=== PATIENT | female | born 2000 | race American Indian/Alaskan Native ===

== ENCOUNTER 2019-01-29 13:40 | Emergency (ER) | payer MEDICAID ==
[2019-01-29 13:56] VITALS: BP 120/72
--- NOTE | 2019-01-29 14:18 | Emergency Department Report ---
ED Rash HPI - HPI Chief Complaint: Medical Clearance Stated Complaint: RINGWORM SPREAD Time Seen by Provider: 01/29/19 14:11 Duration: 2-3 weeks Location: Neck Suspected Cause: Unknown Rash Symptoms: Yes Itching, No Facial Swelling, No Tongue/Oral Swelling, No Breathing Difficulties, No Choking Sensation, No Wheezing/Dyspnea, No Peeling, No Blistering, No Fever, No Lightheaded, No Malaise, No Myalgias Severity: mild Other History: This is a 18-year-old female that presents to the ER with pruritic rash to posterior neck for 2-3 weeks. Patient states her son had similar rash which cleared in a few days. State has was small and now spreading from posterior neck to right shoulder. Denies changing soaps and detergents. 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 Denies cough, fever, chills, redness, swelling, or dyspnea. ED Review of Systems ROS: Stated complaint: RINGWORM SPREAD Other details as noted in HPI Constitutional: denies: chills, fever Respiratory: denies: cough, shortness of breath, wheezing Cardiovascular: denies: chest pain, palpitations Gastrointestinal: denies: abdominal pain, nausea, diarrhea Skin: rash. denies: lesions Neurological: denies: headache, weakness, paresthesias Psychiatric: denies: anxiety, depression ED Past Medical Hx - Past Medical History Previous Medical History?: No - Surgical History Past Surgical History?: No - Social History Smoking Status: Never Smoker - Medications Home Medications: Home Medications Medication Instructions Recorded Confirmed Last Taken Type Triamcinolone 0.1% [Kenalog 0.1% 1 applic TP TID #30 gram 01/29/19 Unknown Rx CREAM] hydrOXYzine PAMOATE [Vistaril] 25 mg PO Q6HR PRN #20 capsule 01/29/19 Unknown Rx Rash Exam - Exam General: Vital signs noted. No distress. Alert and acting appropriately. HEENT: No Periorbital Edema, No Conjuctival Injection, No Chemosis, No Perioral Edema, No Tongue Edema, No Uvular Edema, No Compromised Airway, No Drooling Lungs: Yes Good Air Exchange (Normal Breath Sounds), No Wheezes, No Ronchi, No Stridor, No Cough, No Labored Respirations, No Retractions, No Use of Accessory Muscles, No Other Abnormal Lung Sounds Heart: Yes Regular, No Murmur Skin: Yes Maculopapular Rash (posterior neck and anterior shoulder), No Urticarial Rash, No Morbilliform rash, No Bulla(e), No Excoriations, No Weeping, No Tenderness, No Erythema, No Edema, No Encrustations ED Course Vital Signs 01/29/19 13:53 Temperature 97.9 F Pulse Rate 88 Respiratory 18 Rate Blood Pressure 120/72 [Right] O2 Sat by Pulse 100 Oximetry ED Medical Decision Making - Medical Decision Making Patient is stable was examined by me. There is a maculopapular rash to posterior neck and anterior shoulder. Negative angioedema. Patient will be treated for contact dermatitis and eczema. Started on kenalog cream and vistaril. Patient was referred to Follow-up with a dermatology or if symptoms worsen and continue return to emergency room as soon as possible. At time of discharge, the patient does not seem toxic or ill in appearance. No acute signs of distress noted. Patient agrees to discharge treatment plan of care. No further questions noted by the patient. Critical care attestation.: If time is entered above; I have spent that time in minutes in the direct care of this critically ill patient, excluding procedure time. ED Disposition Clinical Impression: Contact dermatitis and eczema Disposition: DC- TO HOME OR SELFCARE Is pt being admited?: No Does the pt Need Aspirin: No Condition: Stable Instructions: Contact Dermatitis (ED) Additional Instructions: Apply a thin layer of steroid cream twice a day. I have provided a referral to dermatology for follow up below. Prescriptions: Triamcinolone 0.1% [Kenalog 0.1% CREAM] 1 applic TP TID #30 gram hydrOXYzine PAMOATE [Vistaril] 25 mg PO Q6HR PRN #20 capsule PRN Reason: Itching Referrals: [facility] [Provider Group] - 3-5 Days [facility] [Provider Group] - 3-5 Days Time of Disposition: 14:43
== END 2019-01-29 14:47 | disposition home or self-care (01) ==
LOC: ED 13:40
DX: L30.9 Dermatitis, unspecified (principal)
CPT/HCPCS: 99282

== ENCOUNTER 2019-05-18 17:41 | Emergency (ER) | payer MEDICAID ==
[2019-05-18 18:09] VITALS: BP 118/53
--- NOTE | 2019-05-18 18:59 | Emergency Department Report ---
ED Rash HPI - HPI Chief Complaint: Skin Rash Stated Complaint: RASH Time Seen by Provider: 05/18/19 18:55 Duration: 4 months Location: Neck Suspected Cause: Unknown Rash Symptoms: No Itching, No Facial Swelling, No Tongue/Oral Swelling, No Breathing Difficulties, No Choking Sensation, No Wheezing/Dyspnea, No Peeling, No Blistering, No Fever, No Lightheaded, No Malaise, No Myalgias Severity: mild Other History: This is a 18-year-old female that presents to the ER with acute on chronic intermittent pruritic rash to posterior neck x4 months. Denies any facial swelling. Stated has not followed up with career discovery teacher that was provided to patient. Denies any angioedema. Denies any fever, chills, nausea, vomiting, chest pain or SOB. ED Review of Systems ROS: Stated complaint: RASH Other details as noted in HPI Constitutional: denies: chills, fever Eyes: denies: eye pain, eye discharge, vision change ENT: denies: ear pain, throat pain Respiratory: denies: cough, shortness of breath, wheezing Cardiovascular: denies: chest pain, palpitations Endocrine: no symptoms reported Gastrointestinal: denies: abdominal pain, nausea, diarrhea Genitourinary: denies: urgency, dysuria, discharge Musculoskeletal: denies: back pain, joint swelling, arthralgia Skin: rash. denies: lesions Neurological: denies: headache, weakness, paresthesias Psychiatric: denies: anxiety, depression Hematological/Lymphatic: denies: easy bleeding, easy bruising ED Past Medical Hx - Past Medical History Previous Medical History?: No - Surgical History Past Surgical History?: No - Social History Smoking Status: Never Smoker Substance Use Type: None - Medications Home Medications: Home Medications Medication Instructions Recorded Confirmed Last Taken Type Triamcinolone 0.1% [Kenalog 0.1% 1 applic TP TID #30 gram 01/29/19 Unknown Rx CREAM] hydrOXYzine PAMOATE [Vistaril] 25 mg PO Q6HR PRN #20 capsule 01/29/19 Unknown Rx Rash Exam - Exam General: Vital signs noted. No distress. Alert and acting appropriately. HEENT: No Periorbital Edema, No Conjuctival Injection, No Chemosis, No Perioral Edema, No Tongue Edema, No Uvular Edema, No Compromised Airway, No Drooling Lungs: Yes Good Air Exchange (Normal Breath Sounds), No Wheezes, No Ronchi, No Stridor, No Cough, No Labored Respirations, No Retractions, No Use of Accessory Muscles, No Other Abnormal Lung Sounds Heart: Yes Regular, No Murmur Skin: Yes Maculopapular Rash (posterior neck), No Urticarial Rash, No Morbilliform rash, No Bulla(e), No Excoriations, No Weeping, No Tenderness, No Erythema, No Edema, No Encrustations, No Other Other: Positive: Abdomen Normal, Neurologic Normal, Musculoskeletal Normal ED Course Vital Signs 05/18/19 18:07 Temperature 98.2 F Pulse Rate 69 Respiratory 18 Rate Blood Pressure 118/53 O2 Sat by Pulse 98 Oximetry - Reevaluation(s) Reevaluation #1: 05/18/19 18:59 Patient is speaking in full sentences with no signs of distress noted. ED Medical Decision Making - Medical Decision Making Patient was instructed to Follow-up with a primary care doctor in 3-5 days or if symptoms worsen and continue return to emergency room as soon as possible. At time of discharge, the patient does not seem toxic or ill in appearance. No acute signs of distress noted. Patient agrees to discharge treatment plan of care. No further questions noted by the patient. Critical care attestation.: If time is entered above; I have spent that time in minutes in the direct care of this critically ill patient, excluding procedure time. ED Disposition Clinical Impression: Rash of neck Disposition: Z-07 MED SCREENING EXAM-LEFT Is pt being admited?: No Does the pt Need Aspirin: No Condition: Stable Additional Instructions: Follow-up with a primary care doctor in 3-5 days or if symptoms worsen and continue return to emergency room as soon as possible. Referrals: PRIMARY MD SHAYY [Referring] - 3-5 Days GENESIS SALDAÑA MD [Staff Physician] - 3-5 Days [facility] [Provider Group] - 3-5 Days [facility] [Outside] - 3-5 Days
== END 2019-05-18 20:20 | disposition left against medical advice (07) ==
LOC: ED 17:41
DX: R21 Rash and other nonspecific skin eruption (principal); Z53.21 Procedure and treatment not carried out due to patient leaving prior to being seen by health care provider